=== PATIENT | female | born 1950 | race Caucasian/White ===

== ENCOUNTER → 2019-11-22 | Day surgery (SDC) | payer MEDICARE, OTHER ==
[~2019-11-22] MED LIST: Lactated Ringers 1,000 ML IV SCH; Lidocaine 1% 2 ML ONE; Lidocaine 1% 4 ML ONE; Lidocaine 1%/Sod Bicarbonate in NS 8.4% 1 ML Syringe IDERM PRN; Midazolam 1 MG/ML 2 ML SDV ONE; Ondansetron 4 MG/2 ML SDV ONE; Propofol 200 MG/20 ML SDV ONE; Sodium Chloride 0.9% 10 ML Syringe FLUSH PRN; ePHEDrine/Normal Saline 25 MG/5 ML Syringe ONE
--- NOTE | 2019-11-22 08:53 | PCM.PREANE ---
Preanesthetic Assessment - Procedure Proposed Procedure: Screening colonoscopy - Anesthesia/Transfusion/Family Hx Anesthesia History: Prior Anesthesia Reaction Type of Anesthesia Reaction: Excessive Nausea/Vomiting Family History of Anesthesia Reaction: No - Review of Systems General: No Symptoms Pulmonary: No Symptoms (Asthma, controlled, no medications needed since septoplasty/turbinate reduction. ) Cardiovascular: No Symptoms Gastrointestinal: No Symptoms Neurological: No Symptoms Other: Reports: None - Physical Assessment NPO Status Date: 11/22/19 NPO Status Time: 04:00 Vital Signs: Last Vital Signs Temp 36.8 C 11/22/19 07:50 Pulse 83 11/22/19 07:50 Resp 16 11/22/19 07:50 BP 119/55 L 11/22/19 07:50 Pulse Ox 96 11/22/19 07:50 Height: 1.65 m Weight: 81.193 kg ASA Class: 2 Mental Status: Alert & Oriented x3 Airway Class: Mallampati = 2 Dentition: Reports: Normal Dentition Thyro-Mental Finger Breadths: 3 Mouth Opening Finger Breadths: 3 ROM/Head Extension: Full Lungs: Clear to Auscultation, Normal Respiratory Effort Cardiovascular: Regular Rate, Regular Rhythm - Allergies Allergies/Adverse Reactions: Allergies Allergy/AdvReac Type Severity Reaction Status Date / Time amoxicillin [From Augmentin] Allergy Cannot Verified 11/21/19 17:31 Remember clavulanic acid Allergy Cannot Verified 11/21/19 17:31 [From Augmentin] Remember nut - unspecified Allergy Cannot Verified 11/21/19 17:31 Remember pollen extracts Allergy Cannot Verified 11/21/19 17:31 Remember - Acknowledgements Anesthesia Type Planned: General Anesthesia Pt an Appropriate Candidate for the Planned Anesthesia: Yes Alternatives and Risks of Anesthesia Discussed w Pt/Guardian: Yes Pt/Guardian Understands and Agrees with Anesthesia Plan: Yes Additional Comments: Diane does well with IV antinausea medications. She has not had to use a scopolamine patch in the past. 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 ELECTRICIAN History: Reports: Other (See Below) Other OB/BYN History: hysteroscopic myomectomy Musculoskeletal History: Reports: Osteoporosis, Other (See Below) Other Musculoskeletal History: wrist surgery Neurological History: Reports: None Psychiatric History: Reports: None Endocrine/Metabolic History: Reports: None Hematologic History: Reports: None Immunologic History: Reports: None Oncologic (Cancer) History: Reports: None Dermatologic History: Reports: None - Past Surgical History Head Surgeries/Procedures: Reports: None HEENT Surgical History: Reports: Naso-Sinus Surgery Cardiovascular Surgical History: Reports: None Respiratory Surgical History: Reports: None GI Surgical History: Reports: Cholecystectomy, Colonoscopy Female Surgical History: Reports: Hysterectomy Endocrine Surgical History: Reports: None Neurological Surgical History: Reports: None Musculoskeletal Surgical History: Reports: None Oncologic Surgical History: Reports: None Dermatological Surgical History: Reports: None - SUBSTANCE USE Smoking Status *Q: Never Smoker - HOME MEDS Home Medications: Home Meds . [No Known Home Meds] 11/21/19 [History] - CURRENT (IN HOUSE) MEDS Current Meds: Current Medications Lactated Ringer's (Ringers, Lactated) 1,000 mls @ 125 mls/hr IV ASDIRECTED JESIKA Stop: 11/22/19 23:00 Last Admin: 11/22/19 08:05 Dose: 125 mls/hr Lidocaine/Sodium Bicarbonate (Buffered Lidocaine 1% In Ns 8.4%) 0.25 ml IDERM ONETIME PRN PRN Reason: Prior to IV Start Stop: 11/22/19 18:00 Last Admin: 11/22/19 08:04 Dose: 0.25 ml Sodium Chloride (Saline Flush) 10 ml FLUSH ASDIRECTED PRN PRN Reason: Keep Vein Open Stop: 11/22/19 18:00 Discontinued Medications Ephedrine Sulfate (Ephedrine In Ns) Confirm Administered Dose 25 mg .ROUTE .STK- MED ONE Stop: 11/22/19 08:16 Lidocaine HCl (Xylocaine-Mpf 1%) Confirm Administered Dose 4 mls @ as directed .ROUTE .STK-MED ONE Stop: 11/22/19 08:15 Lidocaine HCl (Xylocaine-Mpf 1%) Confirm Administered Dose 2 mls @ as directed .ROUTE .STK-MED ONE Stop: 11/22/19 08:16 Propofol (Diprivan 20 Ml) Confirm Administered Dose 200 mg .ROUTE .STK-MED ONE Stop: 11/22/19 08:16
--- NOTE | 2019-11-22 10:20 | PCM.PRNOTE ---
- Free Text/Narrative Note: Date: 11/22/2019 Procedure: Screening colonoscopy Endoscopist: Chaitanya Messer MD Findings: three very small polyps biopsied with forceps. Prep was excellent. Ileum was intubated. Detailed Report: The patient was taken to the endoscopy suite and placed in left lateral decubitus position. Monitored anesthesia care was initiated after timeout was performed. Visual inspection of the anus revealed no gross abnormalities. Digital rectal exam was unremarkable. The lubricated colonoscope was inserted and advanced all the way to the cecum. The ileocecal valve was visualized, and the ileum was intubated. The scope was then slowly withdrawn and mucosal surfaces were inspected. The prep was noted to be excellent. A small pedunculated polyp, less than 1 cm was biopsied with the forceps somewhere in the transverse colon. A small sessile lesion less than 1 cm was biopsied in the descending colon, and a small hyperplastic looking sessile lesion was biopsied in the sigmoid. No diverticular disease was noted. On retroflexion of the scope in the rectum, no significant hemorrhoidal disease was identified. The patient tolerated the procedure well. Chaitanya Messer MD General Surgery
--- NOTE | 2019-11-22 10:21 | PCM48HPAN ---
Post Anesthesia Note - EVALUATION WITHIN 48HRS OF ANESTHETIC Vital Signs in Normal Range: Yes Patient Participated in Evaluation: Yes Respiratory Function Stable: Yes Airway Patent: Yes Cardiovascular Function Stable: Yes Hydration Status Stable: Yes Pain Control Satisfactory: Yes Nausea and Vomiting Control Satisfactory: Yes Mental Status Recovered: Yes Vital Signs: Last Vital Signs 1015 109/52 95 2L NC 85 16 97.8 Temp 36.8 C 11/22/19 07:50 Pulse 83 11/22/19 07:50 Resp 16 11/22/19 07:50 BP 119/55 L 11/22/19 07:50 Pulse Ox 96 11/22/19 07:50
== END | disposition home or self-care (01) ==
LOC: JD.SDS 07:34
PROVIDERS: ATTEND Surgery
DX: Z12.11 Encounter for screening for malignant neoplasm of colon (principal); K63.5 Polyp of colon; J45.909 Unspecified asthma, uncomplicated; M81.0 Age-related osteoporosis without current pathological fracture; Z88.1 Allergy status to other antibiotic agents; Z91.010 Allergy to peanuts; Z91.09 Other allergy status, other than to drugs and biological substances; Z88.0 Allergy status to penicillin; Z88.8 Allergy status to other drugs, medicaments and biological substances
CPT/HCPCS: 45380; J2001; J2250; J2405; J2704; J7120; 00812; J7050

== ENCOUNTER 2020-07-22 10:32 | Emergency (ER) | payer MEDICARE, OTHER ==
--- NOTE | 2020-07-22 11:09 | EDM.PDOC ---
ED HPI GENERAL MEDICAL PROBLEM - General Chief Complaint: General Stated Complaint: TAILBONE COMPLAINT Time Seen by Provider: 07/22/20 11:01 Source of Information: Reports: Patient History Limitations: Reports: No Limitations - History of Present Illness INITIAL COMMENTS - FREE TEXT/NARRATIVE: 70-year-old female presents to the ED for evaluation of gradually worsening coccyx pain. Patient has been sitting on a crates and cannot sit on any firm surface since about 06 July. No known falls or injuries. She has no known underlying malignancy in any of her bones. Second problem is been constipation alternating with some diarrhea due to stool softeners that she is taking. She is here primarily due to constant pain in the coccyx area. Onset: Sudden Onset Date: 07/06/20 Duration: Day(s):, Getting Worse Location: Reports: Pelvis (Pain primarily in the superior portion of the coccyx at the sacrococcygeal junction.) Quality: Reports: Ache, Throbbing Severity: Moderate Improves with: Reports: Rest, Other Worsens with: Reports: Other (Doing on a grades to take the weight off the area.) Context: Denies: Activity, Lifting, Sick Contact, Trauma, Other Associated Symptoms: Denies: No Other Symptoms, Confusion, Chest Pain, cough w sputum, Diaphoresis, Fever/Chills, Headaches, Loss of Appetite, Malaise, Shortness of Breath, Syncope Treatments OFFICE ASSISTANT RECEPTIONIST: Reports: Acetaminophen (3000 mg a day.) Sacral Pain Score (Numeric/FACES): 10 - Related Data Allergies Allergy/AdvReac Type Severity Reaction Status Date / Time amoxicillin [From Augmentin] Allergy Severe Cannot Verified 07/22/20 10:49 Remember clavulanic acid Allergy Severe Cannot Verified 07/22/20 10:49 [From Augmentin] Remember honey Allergy Respiratory Verified 07/22/20 10:49 Distress nut - unspecified Allergy Cannot Verified 07/22/20 10:49 Remember pollen extracts Allergy Cannot Verified 07/22/20 10:49 Remember Home Meds: Home Meds Calcium Carbonate [Calcium] 1,000 mg PO DAILY 07/22/20 [History] Cholecalciferol (Vitamin D3) [Vitamin D3] 3,000 unit PO DAILY 07/22/20 [History] Meloxicam 15 mg PO DAILY #14 tablet 07/22/20 [Rx] Multivit with Calcium,Iron,Min [One Daily Women's] 1 each PO DAILY 07/22/20 [History] polyethylene glycoL 3350 [MiraLAX] 17 gm PO DAILY #1 cont 07/22/20 [Rx] predniSONE [Prednisone] 20 mg PO ASDIRECTED #15 tablet 07/22/20 [Rx] Past Medical History Cardiovascular History: Reports: None Respiratory History: Reports: Asthma 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 CENTER NURSE History: 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: 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 , Other (See Below) Other CALL CENTER NURSE History: hysteroscopic myomectomy Musculoskeletal History: Reports: Osteoporosis Other Musculoskeletal History: wrist surgery Neurological History: Reports: None Psychiatric History: Reports: None Endocrine/Metabolic History: Reports: None Hematologic History: Reports: None Immunologic History: Reports: None Oncologic (Cancer) History: Reports: None Dermatologic History: Reports: None - Infectious Disease History Infectious Disease History: Reports: None - Past Surgical History HEENT Surgical History: Reports: Naso-Sinus Surgery Respiratory Surgical History: Reports: None GI Surgical History: Reports: Appendectomy, Colonoscopy Female Surgical History: Reports: Other (See Below) Endocrine Surgical History: Reports: None Neurological Surgical History: Reports: Other (See Below) Other Neurological Surgeries/Procedures: Reconstruction of the nerves in the right arm. Musculoskeletal Surgical History: Reports: Other (See Below) Other Musculoskeletal Surgeries/Procedures:: Wrist Surgery Oncologic Surgical History: Reports: None Social & Family History - Tobacco Use Smoking Status *Q: Never Smoker - Caffeine Use Caffeine Use: Reports: Coffee - Recreational Drug Use Recreational Drug Use: No - Living Situation & Occupation Living situation: Reports: Occupation: Retired ED ROS GENERAL - Review of Systems Review Of Systems: See Below Constitutional: Denies: Fever, Chills, Malaise, Weakness, Decreased Appetite, Weight Loss HEENT: Reports: Glasses Respiratory: Reports: No Symptoms Cardiovascular: Reports: No Symptoms Endocrine: Reports: No Symptoms GI/Abdominal: Reports: Constipation, Diarrhea (Diarrhea usually ensues if she takes a stool softener.) : Reports: Frequency, Other (Has chronic microscopic hematuria but that has been assessed by neurologist without any positive findings on cystoscopy of the bladder.) Musculoskeletal: Reports: Other (Chronic pain for the last 3 weeks in her) Skin: Reports: No Symptoms ( coccyx and lower sacrum. No known injuries.) Neurological: Reports: No Symptoms Psychiatric: Reports: No Symptoms Hematologic/Lymphatic: Reports: No Symptoms ED EXAM, GENERAL - Physical Exam Exam: See Below Exam Limited By: Uncooperative General Appearance: Alert, WD/WN, No Apparent Distress, Other (Temperature is 36.2. Heart rate 65 and sinus respiratory 16 with O2 sats of 98% on room air. Blood pressure is mildly elevated 136 106.) Eye Exam: Bilateral Eye: Normal Inspection (No scleral icterus or blepharal pallor.), PERRL Respiratory/Chest: No Respiratory Distress, Lungs Clear, Normal Breath Sounds, No Accessory Muscle Use Cardiovascular: Normal Peripheral Pulses, Regular Rate, Rhythm, No Gallop, No Murmur, No Rub Peripheral Pulses: 2+: Posterior Tibial (L), Posterior Tibial (R), Dorsalis Pedis (L), Dorsalis Pedis (R) GI/Abdominal: Soft, Non-Tender, No Organomegaly, No Abnormal Bruit, No Mass, Pelvis Stable, Abnormal Bowel Sounds (Bowel sounds are mildly hyperactive in all 4 quadrants.), Other. No: Guarding, Rigid, Rebound, Tender Back Exam: Other (Pain well localized to the junction between the coccyx and the sacral area to touch. Obvious deformities or masses appreciated.) Extremities: Normal Inspection, Normal Range of Motion, Non-Tender, No Pedal Edema, Normal Capillary Refill Neurological: Alert, Oriented, CN II-XII Intact, Normal Cognition Psychiatric: Normal Affect, Normal Mood Skin Exam: Warm, Dry, Intact, Normal Color, No Rash Course - Vital Signs Last Recorded V/S: Last Vital Signs Temp 36.2 C 07/22/20 10:45 Pulse 65 07/22/20 12:45 Resp 16 07/22/20 12:45 BP 112/63 07/22/20 12:45 Pulse Ox 95 07/22/20 12:45 - Orders/Labs/Meds Labs: Laboratory Tests 07/22/20 07/22/20 07/22/20 Range/Units 11:26 11:26 11:26 WBC 6.50 (3.98-10.04) K/mm3 RBC 4.22 (3.98-5.22) M/mm3 Hgb 13.2 D (11.2-15.7) gm/dl Hct 41.2 (34.1-44.9) % MCV 97.6 H (79.4-94.8) fl MCH 31.3 (25.6-32.2) pg MCHC 32.0 L (32.2-35.5) g/dl RDW Std Deviation 45.9 (36.4-46.3) fL Plt Count 166 L (182-369) K/mm3 MPV 8.3 L (9.4-12.3) fl Neut % (Auto) 46.8 (34.0-71.1) % Lymph % (Auto) 44.9 (19.3-51.7) % Harmon % (Auto) 6.2 (4.7-12.5) % Eos % (Auto) 1.4 (0.7-5.8) Baso % (Auto) 0.5 (0.1-1.2) % Neut # (Auto) 3.05 (1.56-6.13) K/mm3 Lymph # (Auto) 2.92 (1.18-3.74) K/mm3 Harmon # (Auto) 0.40 H (0.24-0.36) K/mm3 Eos # (Auto) 0.09 (0.04-0.36) K/mm3 Baso # (Auto) 0.03 (0.01-0.08) K/mm3 ESR 12 (0-20) mm/hr Sodium 139 (136-145) mEq/L Potassium 4.8 (3.5-5.1) mEq/L Chloride 104 (98-107) mEq/L Carbon Dioxide 30 (21-32) mEq/L Anion Gap 9.8 (5-15) BUN 19 H (7-18) mg/dL Creatinine 0.8 (0.55-1.02) mg/dL Est Cr Clr Drug Dosing 58.12 mL/min Estimated GFR (MDRD) > 60 (>60) mL/min BUN/Creatinine Ratio 23.8 H (14-18) Glucose 101 (80-115) mg/dL Calcium 9.2 (8.5-10.1) mg/dL Total Bilirubin 0.2 (0.2-1.0) mg/dL AST 22 (15-37) U/L ALT 38 (14-59) U/L Alkaline Phosphatase 53 (46-116) U/L C-Reactive Protein 0.6 (<1.0) mg/dL Total Protein 7.0 (6.4-8.2) g/dl Albumin 3.4 (3.4-5.0) g/dl Globulin 3.6 gm/dL Albumin/Globulin Ratio 0.9 L (1-2) - Radiology Interpretation Free Text/Narrative:: 70-year-old female presents to the ED primarily due to pain at the sacrococcygeal junction. No known injuries. First noticed it while sitting in caodaism on 06 July. Pain is been constant over 6 since. She is been sitting on a creates to dissipate the weight. Second problem is been intermittent problems with constipation which aggravates the coccygeal pain. She gets diarrhea however if she takes any stool softeners. Plan she will have a KUB of her abdomen performed to look for bowel gas pattern and stool. She will have CT of her pelvis including the coccyx and sacrum. - Re-Assessments/Exams Free Text/Narrative Re-Assessment/Exam: 07/22/20 13:06 x-ray of the abdomen shows of scattered stool throughout the colon particularly right hemicolon and rectal vault. No bowel obstruction evident. CT of the pelvis reveals vacuum disc phenomena within the L4-5 and L L5-S1 levels mild degenerative changes seen within the apophyseal joints in this area. Sacrum and coccyx shows no fracture. Scoliosis is partially visualized within the lumbar spine. No fractures are identified and no evidence of osteomyelitis evident. 07/22/20 13:13 I have discussed the findings with the patient. Decision will be to place her on MiraLAX powder 17 g once daily to try and regulate her bowels so that she is not going in between diarrhea and constipation. Most of her problems have been constipation and there is a large stool bolus pushing down on the sacrum and coccyx area at this time. Secondly I am going to place her on meloxicam 15 mg once daily for the next 2 weeks to see if this will alleviate a good deal of her inflammation as she has vacuum phenomena at the L4-L5 and L5-S1 disc spaces which is likely the cause of the referred pain to the coccyx and sacral area. I am also going to place her on prednisone 20 mg twice daily breakfast and supper for 5 days and then once in the morning only for another 5 days in the hopes of further relieving her inflammation. Plan will be to follow-up with her primary care provider Anupama Mullins in 12 days time to see how she is making out. Departure - Departure Time of Disposition: 13:14 Disposition: Home, Self-Care 01 Condition: Fair Clinical Impression: Coccyalgia, Constipation by delayed colonic transit - Discharge Information *PRESCRIPTION DRUG MONITORING PROGRAM REVIEWED*: Not Applicable *COPY OF PRESCRIPTION DRUG MONITORING REPORT IN PATIENT DIOGENES: Not Applicable Prescriptions: Meloxicam 15 mg PO DAILY #14 tablet polyethylene glycoL 3350 [MiraLAX] 17 gm PO DAILY #1 cont predniSONE [Prednisone] 20 mg PO ASDIRECTED #15 tablet Instructions: Tailbone Injury, [id number] Referrals: Anupama Mullins, BRAKE OPERATOR HELPER [Primary Care Provider] - Forms: ED Department Discharge Additional Instructions: Evaluation in the emergency room today in regards to persistent and worsening pain felt primarily in the coccyx and lower sacrum area of your lower back. No known injuries or falls to irritate this area. Second problem is intermittent problems with constipation and diarrhea if you take stool softeners. X-ray of the abdomen does show increased stool throughout the right hemicolon and into the rectal vault. I.e. mild to moderate constipation due to poor transit through the colon. Suggest taking MiraLAX powder 17 g or 1 scoop every single day for the next 3 to 4 weeks to regulate the bowel and prevent constipation from occurring. CT scan done of your pelvis reveals degenerative change at the lumbar 4-5 level and left lumbar 5-S1 level which is the lowest 2 bones in your lower back. They have loss of the disc completely in this area and therefore I think your current low back pain is referred down into the sacrum and coccyx area causing constant pain. Suggest a trial of anti-inflammatory meloxicam 15 mg once daily for the next 14 days to try and reduce pain and inflammation. Also a short course of prednisone 20 mg with breakfast and supper for 5 days and then once in the morning only for another 5 days to further help reduce pain and inflammation. I would like you to follow-up with your primary care provider Anupama Mullins in approximately 12 to 14 days time to see how you are making out. Pain is worsening instead of getting better further imaging such as MRI or bone scan will need to be carried out. Sepsis Event Note (ED) - Evaluation Sepsis Screening Result: No Definite Risk - Focused Exam Vital Signs: Vital Signs Temp Pulse Resp BP Pulse Ox 07/22/20 12:45 65 16 112/63 95 07/22/20 10:45 36.2 C 65 16 136/106 H 98
--- NOTE | 2020-07-22 12:45 | CT ---
CT pelvis Technique: Multiple axial sections through the pelvis were obtained. Reconstructed coronal and sagittal images were reviewed. Comparison: Previous sacrum and coccyx plain film study of 07/09/20. Findings: Vacuum disc phenomena is seen within the L4-5 and L5-S1 disks. Mild degenerative change is seen within the apophyseal joints at both these levels. Sacrum and coccyx shows no fracture. Scoliosis is partially visualized within the lumbar spine. Impression: 1. Degenerative change within the lumbar spine. 2. No acute abnormality is appreciated on CT study of this pelvis. Diagnostic code #2 This report was dictated in MDT
--- NOTE | 2020-07-22 12:46 | CR ---
Abdomen: Supine view of the abdomen was obtained. Comparison: Prior abdominal x-ray of 07/09/20. Scoliosis and degenerative changes noted within the spine. Bowel gas pattern is normal. No abnormal calcifications or soft tissue abnormality is seen. Impression: 1. Findings as noted above. Nothing acute is seen on supine abdominal x-ray. Diagnostic code #2 This report was dictated in MDT
== END 2020-07-22 13:40 | disposition home or self-care (01) ==
LOC: JD.ED 10:32
DX: M53.3 Sacrococcygeal disorders, not elsewhere classified (principal); K59.01 Slow transit constipation; J45.909 Unspecified asthma, uncomplicated; Z88.1 Allergy status to other antibiotic agents; Z91.018 Allergy to other foods; Z79.899 Other long term (current) drug therapy
CPT/HCPCS: 36415; 72192; 72192-26; 74018; 74018-26; 80053; 85025; 85652; 86140; 99283; 99284-25

== ENCOUNTER 2021-05-13 10:31 | Emergency (ER) | payer MEDICARE, OTHER ==
[2021-05-13] MEDS ORDERED: Magnesium Citrate Solution 296 ML Bottle PO ONE (11:44)
--- NOTE | 2021-05-13 11:48 | EDM.PDOC ---
ED HPI GENERAL MEDICAL PROBLEM - General Chief Complaint: Gastrointestinal Problem Stated Complaint: CONSTIPATED Time Seen by Provider: 05/13/21 11:03 Source of Information: Reports: Patient, RN Notes Reviewed - History of Present Illness INITIAL COMMENTS - FREE TEXT/NARRATIVE: 70 yr old female with concerns about constipation. Did have a BM 2 days ago, very small BM today but not "near normal for her" No current abd pain. No nausea or vomting. Has been eating and drinking OK. 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: Acetaminophen, Other Medication(s) Abdominal Pain Score (Numeric/FACES): 6 - Related Data Allergies Allergy/AdvReac Type Severity Reaction Status Date / Time amoxicillin [From Augmentin] Allergy Severe Cannot Verified 05/13/21 10:39 Remember clavulanic acid Allergy Severe Cannot Verified 05/13/21 10:39 [From Augmentin] Remember honey Allergy Respiratory Verified 05/13/21 10:39 Distress nut - unspecified Allergy Cannot Verified 05/13/21 10:39 Remember pollen extracts Allergy Cannot Verified 05/13/21 10:39 Remember Home Meds: Home Meds Calcium Carbonate [Calcium] 1,000 mg PO DAILY 07/22/20 [History] Cholecalciferol (Vitamin D3) [Vitamin D3] 3,000 unit PO DAILY 07/22/20 [History] Multivit with Calcium,Iron,Min [One Daily Women's] 1 each PO DAILY 07/22/20 [History] polyethylene glycoL 3350 [MiraLAX] 17 gm PO DAILY #1 cont 07/22/20 [Rx] Turmeric 400 mg PO DAILY 05/13/21 [History] Past Medical History HEENT History: Reports: None Cardiovascular History: Reports: None Respiratory History: Reports: Asthma Gastrointestinal History: Reports: Chronic Constipation Genitourinary History: Reports: Other (See Below) Other Genitourinary History: 1cm cyst on each kidney 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 , Other (See Below) Other ANTISQUEAK WORKER History: hysteroscopic myomectomy Musculoskeletal History: Reports: Osteoporosis Other Musculoskeletal History: wrist surgery Neurological History: Reports: None Psychiatric History: Reports: None Endocrine/Metabolic History: Reports: None Hematologic History: Reports: None Immunologic History: Reports: None Oncologic (Cancer) History: Reports: None Dermatologic History: Reports: None - Infectious Disease History Infectious Disease History: Reports: Measles - Past Surgical History Head Surgeries/Procedures: Reports: None HEENT Surgical History: Reports: Naso-Sinus Surgery Cardiovascular Surgical History: Reports: None Respiratory Surgical History: Reports: None GI Surgical History: Reports: Appendectomy, Colonoscopy Female Surgical History: Reports: Other (See Below) Endocrine Surgical History: Reports: None Neurological Surgical History: Reports: Other (See Below) Other Neurological Surgeries/Procedures: Reconstruction of the nerves in the right arm. Musculoskeletal Surgical History: Reports: Other (See Below) Other Musculoskeletal Surgeries/Procedures:: Wrist Surgery Oncologic Surgical History: Reports: None Dermatological Surgical History: Reports: None Social & Family History - Family History Family Medical History: No Pertinent Family History Cardiac: Reports: CAD, [place] Neurological: Reports: CVA - Tobacco Use Tobacco Use Status *Q: Never Tobacco User - Caffeine Use Caffeine Use: Reports: Tea - Recreational Drug Use Recreational Drug Use: No - Living Situation & Occupation Living situation: Reports: Occupation: Retired ED ROS GENERAL - Review of Systems Review Of Systems: See Below Constitutional: Denies: Fever, Chills, Diaphoresis HEENT: Reports: No Symptoms Respiratory: Denies: Shortness of Breath, Pleuritic Chest Pain Cardiovascular: Denies: Chest Pain GI/Abdominal: Reports: Constipation. Denies: Abdominal Pain, Nausea, Vomiting Musculoskeletal: Reports: No Symptoms Skin: Reports: No Symptoms Neurological: Reports: No Symptoms ED EXAM, GI/ABD - Physical Exam Exam: See Below General Appearance: Alert, No Apparent Distress Head: Atraumatic Neck: Supple Respiratory/Chest: No Respiratory Distress, Lungs Clear, Normal Breath Sounds Cardiovascular: Regular Rate, Rhythm GI/Abdominal Exam: Soft, Non-Tender. No: Guarding Back Exam: No: CVA Tenderness (L), CVA Tenderness (R) Extremities: Normal Inspection Neurological: Alert, Oriented, No Motor/Sensory Deficits Skin Exam: Warm, Dry, Normal Color Course - Vital Signs Last Recorded V/S: Last Vital Signs Temp 98.7 F 05/13/21 10:44 Pulse 77 05/13/21 10:44 Resp 16 05/13/21 10:44 BP 141/67 H 05/13/21 10:44 Pulse Ox 96 05/13/21 10:44 - Orders/Labs/Meds Meds: Medications Discontinued Medications Generic Name Dose Route Start Last Admin Trade Name Freq PRN Reason Stop Dose Admin Magnesium Citrate 296 ml 05/13/21 11:44 05/13/21 12:02 Magnesium Citrate Solution 296 Ml Bottle PO 05/13/21 11:45 296 ml ONETIME ONE Administration - Re-Assessments/Exams Free Text/Narrative Re-Assessment/Exam: 05/13/21 20:11 Flat and upright, mod. scattered stool and gas, not excessive, no air fluid levels. Discharge instr. as documented. Departure - Departure Time of Disposition: 11:45 Disposition: Home, Self-Care 01 Condition: Fair Clinical Impression: Constipation Qualifiers: Constipation type: unspecified constipation type Qualified Code(s): K59.00 - Constipation, unspecified - Discharge Information Instructions: Constipation, Adult, [id number] Referrals: Anupama Mullins BREWERY WORKER [Primary Care Provider] - Forms: ED Department Discharge Additional Instructions: mag citrate laxative. Drink 1/2 bottle now, drink the remainder later today if no BM by later this afternoon. Continue prunes or prune juice daily. Try eat plenty of fruit and vegetables and other fiber foods. Consider taking a stool softner such as pericolace once or twice daily. Follow up clinic as needed. Return to ED as needed if symptoms worsening in any way. Sepsis Event Note (ED) - Evaluation Sepsis Screening Result: No Definite Risk - Focused Exam Vital Signs: Vital Signs Temp Pulse Resp BP Pulse Ox 05/13/21 10:44 98.7 F 77 16 141/67 H 96
--- NOTE | 2021-05-13 12:17 | CR ---
Abdomen: Supine and upright views of the abdomen were obtained. Comparison: Previous abdominal x-ray of 07/22/20. Scoliosis and mild degenerative change is seen within the spine. Bowel gas pattern appears within normal limits. No abnormal calcifications or soft tissue abnormality is seen. No free air is seen. Impression: 1. Findings as noted above. Nothing acute is seen. Diagnostic code #2
== END 2021-05-13 12:03 | disposition home or self-care (01) ==
LOC: JD.ED 10:31
DX: K59.00 Constipation, unspecified (principal); Z91.010 Allergy to peanuts; Z91.09 Other allergy status, other than to drugs and biological substances; Z91.030 Bee allergy status; Z88.0 Allergy status to penicillin
CPT/HCPCS: 74019; 99283; A9270

== ENCOUNTER 2022-11-26 11:15 | Emergency (ER) | payer MEDICARE, OTHER | END 2022-11-26 12:26 | disposition home or self-care (01) | LOC: JD.ED 11:15 | DX: M79.662 Pain in left lower leg (principal); J45.909 Unspecified asthma, uncomplicated; Z79.899 Other long term (current) drug therapy; Z91.048 Other nonmedicinal substance allergy status; Z91.018 Allergy to other foods; Z88.1 Allergy status to other antibiotic agents; Z88.0 Allergy status to penicillin | CPT/HCPCS: 73590-26-LT; 73590-LT; 99283 ==

== ENCOUNTER 2025-02-12 07:45 | Day surgery (SDC) | payer MEDICARE, OTHER ==
[2025-02-12] MEDS ORDERED: Sodium Chloride 0.9% 10 ML Syringe FLUSH PRN (07:51)
[2025-02-12] MEDS: Lactated Ringers 1,000 ML IV SCH (08:00)
[2025-02-12] MEDS ORDERED: Propofol 200 MG/20 ML SDV ONE ×3 (08:10→08:44)
[2025-02-12] MEDS ORDERED: Sodium Chloride 0.9% 10 ML Syringe FLUSH SCH (09:00)
== END 2025-02-12 09:50 | disposition home or self-care (01) ==
LOC: JD.SDS 07:45
PROVIDERS: ATTEND Surgery
DX: Z12.11 Encounter for screening for malignant neoplasm of colon (principal); K29.50 Unspecified chronic gastritis without bleeding; K44.9 Diaphragmatic hernia without obstruction or gangrene; K57.30 Diverticulosis of large intestine without perforation or abscess without bleeding; F41.9 Anxiety disorder, unspecified; J45.909 Unspecified asthma, uncomplicated; E78.5 Hyperlipidemia, unspecified; G20.A1 Parkinson's disease without dyskinesia, without mention of fluctuations; Z79.899 Other long term (current) drug therapy; Z88.0 Allergy status to penicillin; Z91.030 Bee allergy status; Z91.018 Allergy to other foods
CPT/HCPCS: 43239; C9777; G0105; J2704; J7120; 00813; 99100

== ENCOUNTER 2025-04-30 10:39 | Day surgery (SDC) | payer MEDICARE, OTHER ==
[~2025-04-30 10:39] MED LIST changes: -Lactated Ringers 1,000 ML IV SCH; -Lidocaine 1% 2 ML ONE; -Lidocaine 1% 4 ML ONE; -Lidocaine 1%/Sod Bicarbonate in NS 8.4% 1 ML Syringe IDERM PRN; -Midazolam 1 MG/ML 2 ML SDV ONE; -Ondansetron 4 MG/2 ML SDV ONE; -Propofol 200 MG/20 ML SDV ONE; +Sodium Chloride 0.9% 10 ML Syringe FLUSH SCH; -ePHEDrine/Normal Saline 25 MG/5 ML Syringe ONE
[2025-04-30] MEDS ORDERED: propofoL 500 MG/50 ML 50 ML ONE (11:10)
[2025-04-30] MEDS ORDERED: Midazolam 1 MG/ML 2 ML SDV ONE (11:11)
[2025-04-30] MEDS ORDERED: fentaNYL 100 MCG/2 ML SDV ONE (11:11)
[2025-04-30] MEDS ORDERED: Succinylcholine 200 MG/10 ML MDV ONE (11:15)
[2025-04-30] MEDS ORDERED: Rocuronium 50 MG/5 ML Vial ONE (11:15)
[2025-04-30] MEDS ORDERED: Sugammadex Sodium 200 MG/2 ML VIAL IV ONE (11:16)
[2025-04-30] MEDS: Lactated Ringers 1,000 ML IV SCH (11:20)
[2025-04-30] MEDS: Scopalamine 1mg/3day Transdermal Patch TOP ONE (11:30)
== END 2025-04-30 12:55 | disposition home or self-care (01) ==
LOC: JD.SDS 10:39
PROVIDERS: ATTEND Surgery
DX: R13.10 Dysphagia, unspecified (principal); K21.9 Gastro-esophageal reflux disease without esophagitis; J45.909 Unspecified asthma, uncomplicated; G20.A1 Parkinson's disease without dyskinesia, without mention of fluctuations; E78.5 Hyperlipidemia, unspecified; Z79.899 Other long term (current) drug therapy; Z88.0 Allergy status to penicillin; Z91.018 Allergy to other foods
CPT/HCPCS: 43235; A9270; J0330; J2250; J2704; J3010; J7120; J3490